=== PATIENT | female | born 1970 | race Caucasian/White ===

== ENCOUNTER → 2017-05-26 | Day surgery (SDC) | payer MEDICARE, OTHER ==
[~2017-05-26] MED LIST: ACETAMINOPHEN PO; ACETAMINOPHEN500 MG PO; ADDERALL 30 MG30 MG PO; AMPHETAMINE SAL30 MG PO; APPLE CIDER VI300 MG PO; BUPIVACAINE HCL 0.5% INJ 30 ML VIAL INJ ONE; CINNAMON500 MG PO; CLINDAMYCIN PHOS 900MG/ D5W 50 50 ML IV ONE; DEXAMETHASONE SOD PHOS INJ 4 MG/ML VIAL ONE; FENTANYL CITRATE/PF 100MCG/2 ML INJ ONE; FISH OIL 1,0001 EAC2 PO; GABAPENTIN300 MG PO; GLYCOPYRROLATE INJ 1MG/ 5 ML SYR ONE; IBUPROFEN200 MG PO; LATUDA40 MG PO; LIDOCAINE HCL 2% LOCAL INJ 5 ML SDV VIAL INJ ONE; LIPITOR10 MG PO; METFORMIN HCL500 M2 PO; MIDAZOLAM HCL 2 MG/2 ML VIAL ONE; ONDANSETRON HCL INJ 2 MG/ML VIAL ONE; PROPOFOL IV EMULSION 10 MG/ML 20 ML VIAL ONE; SEVOFLURANE INHAL SOLN 250 ML PEN BTL ONE; SIMVASTATIN20 MG PO; VENLAFAXINE HC150 M1 PO; VIT E PO; VYVANSE70 MG PO
--- NOTE | 2017-05-27 00:09 | Operative Report ---
DATE OF PROCEDURE: May 26, 2017 PREOPERATIVE DIAGNOSIS: Ganglion cyst left wrist. POSTOPERATIVE DIAGNOSIS: Ganglion cyst left wrist. OPERATION/PROCEDURE PERFORMED: Patient underwent excision of a left wrist ganglion cyst. PMO BUSINESS ANALYST: None. ANESTHESIA: General endotracheal intubation anesthesia. IV FLUIDS: Per anesthesia record. DESCRIPTION OF PROCEDURE: Ms. Fernandez was taken to the operating room, placed in supine position on the operating table. Following induction of general anesthesia, as well as endotracheal intubation, patient's left upper extremity was examined under anesthesia. She was found to have a mass on the volar aspect of the distal forearm at the level of the wrist crease. Mass was located along volar radial aspect of the wrist joint. The mass had a consistency of a ganglion cyst. Patient's upper extremity was prepped and draped in standard surgical fashion. The case was begun by creating an incision directly over the lesion. This incision was carried through skin only. A ganglion cyst was found in the subcutaneous soft tissues and this was arising from the volar wrist joint. Blunt dissection was used to isolate the cyst and the cyst was found to have a thin stalk arising from the volar wrist joint. The cyst was excised and the defect was isolated. The defect was then closed with the Vicryl suture. The remaining soft tissues were closed in a multilayer fashion. Sterile dressings were applied and the patient was then awakened and taken to the post anesthesia care unit in stable condition. Job#: [id number]
== END | disposition home or self-care (01) ==
LOC: OR 10:27
PROVIDERS: ATTEND Specialist
DX: M67.432 Ganglion, left wrist (principal); M76.72 Peroneal tendinitis, left leg; E11.9 Type 2 diabetes mellitus without complications; E78.5 Hyperlipidemia, unspecified; A60.00 Herpesviral infection of urogenital system, unspecified; F31.9 Bipolar disorder, unspecified; F41.0 Panic disorder [episodic paroxysmal anxiety]; Z68.36 Body mass index [BMI] 36.0-36.9, adult; Z87.891 Personal history of nicotine dependence
CPT/HCPCS: 25111; 36415; 82948; J1100; J2001; J2250; J2405